=== PATIENT | male | born 1955 ===

== ENCOUNTER 2018-05-11 07:00 | Day surgery (SDC) | payer OTHER ==
[~2018-05-11] VITALS: Ht 177.8 cm; Wt 99.8 kg
[2018-05-11] MEDS ORDERED: TAMS0.4C (10:33)
[2018-05-11] MEDS ORDERED: PERCOCET 5-3251 EACH PO (18:58)
[2018-05-11] MEDS ORDERED: CIPRO500 MG PO (18:58)
[2018-05-11] MEDS ORDERED: FLAGYL500MG PO (18:59)
[2018-05-11] MEDS ORDERED: RECTICARE30 GM TOP (18:59)
== END 2018-05-11 13:00 | disposition home or self-care (01) ==
LOC: CIR.AMB 07:00 → ER 10:24 → CIR.AMB 12:00 → O/R 12:34 → SURG 12:34 → ER 12:34 → SEC-K 12:34 → CIR.AMB 13:00 → SEC-K 15:21 → SURG 15:21 → EDSTATUS 17:00 → SURG 05-12 08:23 → SEC-K 05-12 08:23 → O/R 05-12 08:23 → SEC-K 05-12 23:40
DX: K61.0 Anal abscess (principal)